=== PATIENT | female | born 1970 | race Caucasian/White ===

== ENCOUNTER 2016-10-24 15:59 | Emergency (ER) | payer BC, OTHER ==
[2016-10-24 19:26] VITALS: BP 123/56
--- NOTE | 2016-10-24 19:43 | UC ---
Throat Pain/Nasal Nikko HPI - HPI Summary HPI Summary: 46 female presents today with 3 grandchildren complaining of having symptoms of a sinus infection for the past week without any improvement. She states she just had one not too long ago, back in July of 2016. Complains of nasal and sinus congestion, ear fullness, pressure behind her eyes and headache. Patient admits to a mild cough due to post nasal drip upon waking up in the morning. Denies sore throat, fever/chills, nausea, vomiting, diarrhea, difficulty breathing and chest pain. She has been experiencing an increased amount of sinus infections and states the right side seems to be worse. She tried taking Sudafed and using Netti pots with minimal relief. - History of Current Complaint Chief Complaint: UCRespiratory Stated Complaint: SINUSES Time Seen by Provider: 10/24/16 19:32 Hx Obtained From: Patient Hx Last Menstrual Period: 08/14/16 ?: No Onset/Duration: Sudden Onset, Lasting Weeks - 1 week Severity: Moderate Pain Intensity: 7 - due to pressure Pain Scale Used: 0-10 Numeric Cough: Nonproductive - only upon waking, thinks it is due from post nasal drip Associated Signs & Symptoms: Positive: Sinus Discomfort, Nasal Discharge. Negative: Dysphagia, Fever, Vomiting - Allergies/Home Medications Allergies/Adverse Reactions: Allergies Allergy/AdvReac Type Severity Reaction Status Date / Time Sulfamethoxazole Allergy Rash Verified 10/24/16 19:26 w/Trimethoprim [From Bactrim] Home Medications: Home Medications Levothyroxine TAB* [Synthroid TAB*] 100 mcg PO DAILY 10/24/16 [History Confirmed 10/24/16] Loratadine [Claritin] 10 mg PO DAILY 10/24/16 [History Confirmed 10/24/16] Montelukast Sodium TAB* [Singulair TAB*] 10 mg PO DAILY 10/24/16 [History Confirmed 10/24/16] PMH/Surg Hx/FS Hx/Imm Hx Previously Healthy: Yes Respiratory History Of: Reports: Asthma - Surgical History Surgical History: Yes Surgery Procedure, Year, and Place: left knee. breast reduction. tubal. appy. T&A - Family History Known Family History: Positive: None Family History: no cardio vascular issues in family lineage - Social History Alcohol Use: Occasionally Substance Use Type: None Smoking Status (MU): Never Smoked Tobacco Review of Systems Constitutional: Negative Skin: Negative Eyes: Negative ENT: Ear Ache - fullness b/l, Nasal Discharge, Other - sinus pressure Respiratory: Cough - upon waking, post nasal drip related, non-productive Cardiovascular: Negative Gastrointestinal: Negative Genitourinary: Negative Motor: Negative Neurovascular: Negative Musculoskeletal: Negative Neurological: Headache Psychological: Negative All Other Systems Reviewed And Are Negative: Yes Physical Exam Triage Information Reviewed: Yes Appearance: Well-Appearing - appears fatigued, sounds congested upon speaking, No Pain Distress, Well-Nourished Vital Signs: Initial Vital Signs Temp 97.1 F 10/24/16 19:22 Pulse 76 10/24/16 19:22 Resp 14 10/24/16 19:22 BP 123/56 10/24/16 19:22 Pulse Ox 100 10/24/16 19:22 Vital Signs Reviewed: Yes Eyes: Positive: Conjunctiva Clear ENT: Positive: Hearing grossly normal, Pharynx normal - post-nasal drip noted, Nasal congestion, Nasal drainage, TMs normal - with serous effusion's bilateral , Other: - tenderness upon percussion of maxillary sinuses, more on the right than the left Dental Exam: Normal Neck: Positive: Supple, Nontender, No Lymphadenopathy Respiratory: Positive: Chest non-tender, Lungs clear, Normal breath sounds, No respiratory distress Cardiovascular: Positive: RRR, No Murmur, Pulses Normal Musculoskeletal Exam: Normal Neurological Exam: Normal Psychological Exam: Normal Skin Exam: Normal Throat Pain/Nasal Course/Dx - Course Course Of Treatment: Patient will be given augmentin and flonase for sinusitis. encouraged to follow up with PCP for further imaging due to increasing amount of sinus infections. - Differential Dx/Diagnosis Differential Diagnosis/HQI/PQRI: Influenza, Laryngitis, Otitis Media, Pharyngitis, Sinusitis, URI Provider Diagnoses: Acute Bacterial Sinusitis Discharge - Discharge Plan Condition: Stable Disposition: HOME Prescriptions: Amoxicillin/Clavulanate TAB* [Augmentin TAB 875*] 875 mg PO BID #20 tab Fluticasone NASAL SPRAY 50MCG* [Flonase NASAL SPRAY 50MCG*] 2 spray BOTH NARES DAILY #1 btl Patient Education Materials: Sinusitis (ED) Referrals: Kayla Hunter MD [Primary Care Provider] - Additional Instructions: Continue using OTC Netti pots/saline rinses, sudafed and Tylenol for pain. Take medications as prescribed until entire dose is finished. If symptoms worsen or do not improve please return to or follow-up with your primary care provider. hot pack on cheeks will also help relieve some pain.
== END 2016-10-24 20:04 | disposition home or self-care (01) ==
LOC: UCCORT 15:59
DX: J01.80 Other acute sinusitis (principal); Z88.2 Allergy status to sulfonamides
CPT/HCPCS: 99212; G0463

== ENCOUNTER 2018-11-11 17:49 | Emergency (ER) | payer OTHER ==
[2018-11-11 18:17] VITALS: BP 119/72
[2018-11-11 18:29] LABS: Influenza A Molecular POSITIVE (Negative)
[2018-11-11] MEDS ORDERED: Albuterol 2.5 MG/3 ML NEB.SOL* (0.083%) INH ONE (18:57)
--- NOTE | 2018-11-11 18:59 | UC ---
UC General HPI - HPI Summary HPI Summary: PER TRIAGE, FEVER/CHILLS, SWEATS, BODYACHES AND COUGH X2 DAYS. TAKING TYLENOL AND IBUPROFEN PRN W/ FEVER RELIEF. ALSO USING ALBUTEROL INHALER AND NEB W/ RELIEF. +HX ASTHMA - History of Current Complaint Chief Complaint: UCRespiratory Stated Complaint: COUGH,FEVER,ACHY,CHILLS Time Seen by Provider: 11/11/18 18:53 Hx Obtained From: Patient Hx Last Menstrual Period: 11/11/18 Timing: Constant Pain Intensity: 9 Associated Signs & Symptoms: Negative: Chest Pain - Allergy/Home Medications Allergies/Adverse Reactions: Allergies Allergy/AdvReac Type Severity Reaction Status Date / Time sulfamethoxazole Allergy Rash Verified 11/11/18 18:11 [From Bactrim] trimethoprim [From Bactrim] Allergy Rash Verified 11/11/18 18:11 Home Medications: Home Medications Albuterol 0.5% CONC NEB.MARGARET* 1 inh BID PRN 11/11/18 [History Confirmed 11/11/18] Albuterol HFA INHALER* [Ventolin HFA Inhaler*] 1 puff Q4HR PRN 11/11/18 [ History Confirmed 11/11/18] Budesonide/Formote 160/4.5(NF) [Symbicort 160/4.5 (NF)] 1 puff DAILY 11/11/18 [ History Confirmed 11/11/18] PMH/Surg Hx/FS Hx/Imm Hx Endocrine History: Thyroid Disease Respiratory History: Asthma - Surgical History Surgical History: Yes Surgery Procedure, Year, and Place: left knee. breast reduction. tubal. appy. T&A - Family History Known Family History: Positive: None Family History: no cardio vascular issues in family lineage - Social History Alcohol Use: Occasionally Substance Use Type: None Smoking Status (MU): Never Smoked Tobacco - Immunization History Most Recent Influenza Vaccination: NOT IN 2017 Review of Systems All Other Systems Reviewed And Are Negative: Yes Constitutional: Positive: Fever, Chills Skin: Positive: Negative Eyes: Positive: Negative ENT: Positive: Negative Respiratory: Positive: Shortness Of Breath, Cough Cardiovascular: Positive: Negative Gastrointestinal: Positive: Negative Genitourinary: Positive: Negative Motor: Positive: Negative Neurovascular: Positive: Negative Musculoskeletal: Positive: Myalgia Neurological: Positive: Headache Psychological: Positive: Negative Physical Exam Triage Information Reviewed: Yes Appearance: Ill-Appearing - BUT NON TOXIC Vital Signs: Initial Vital Signs Temp 98.9 F 11/11/18 18:13 Pulse 94 11/11/18 18:13 Resp 16 11/11/18 18:13 BP 119/72 11/11/18 18:13 Pulse Ox 98 11/11/18 18:13 Vital Signs Reviewed: Yes Eyes: Positive: Conjunctiva Clear ENT: Positive: Pharynx normal, TMs normal. Negative: Nasal drainage Neck: Positive: Supple, Nontender, No Lymphadenopathy Respiratory: Positive: No respiratory distress, Decreased breath sounds, Wheezing - FEW SCATTERED, Other: - NPC Cardiovascular: Positive: RRR, No Murmur Abdomen Description: Positive: Nontender, No Organomegaly, Soft Bowel Sounds: Positive: Present Musculoskeletal: Positive: ROM Intact Neurological: Positive: Alert Psychological: Positive: Age Appropriate Behavior Skin Exam: Normal Diagnostics - Laboratory Diagnostic Studies Completed/Ordered: INFLUENZA A + Course/Dx - Diagnoses Provider Diagnosis: Influenza A Discharge - Sign-Out/Discharge Documenting (check all that apply): Patient Departure All imaging exams completed and their final reports reviewed: No Studies - Discharge Plan Condition: Stable Disposition: HOME Prescriptions: Oseltamivir CAP* [Tamiflu CAP*] 75 mg PO BID 5 Days #10 cap predniSONE [Prednisone 20 MG TAB] 40 mg PO DAILY 5 Days #10 tablet Patient Education Materials: Influenza (DC) Forms: *Work Release Referrals: Kayla Hunter MD [Primary Care Provider] - 5 Days Additional Instructions: USE RESCUE INHALER 2 PUFFS EVERY 6 HOURS - Billing Disposition and Condition Condition: STABLE Disposition: Home
== END 2018-11-11 19:18 | disposition home or self-care (01) ==
LOC: UCCORT 17:49
DX: J10.1 Influenza due to other identified influenza virus with other respiratory manifestations (principal); J45.909 Unspecified asthma, uncomplicated; Z88.2 Allergy status to sulfonamides; Z79.899 Other long term (current) drug therapy
CPT/HCPCS: 99212; G0463

== ENCOUNTER 2019-08-01 13:44 | Emergency (ER) | payer OTHER ==
[2019-08-01 15:43] VITALS: BP 115/36
--- NOTE | 2019-08-01 16:27 | UC ---
Throat Pain/Nasal Nikko HPI - HPI Summary HPI Summary: Patient is a 49yo female presenting with nasal congestion, sore throat, sinus pressure and tenderness, and headache x5 days. Patient states she gets sinusitis every year. Amos ear pain. Denies cough, SOB, and wheezing. Denies n/ v/d. Denies fever and chills. Patient also notes pruritic rash on left lower abdomen that has been there for several weeks. States she also has had this in the past. Notes history of asthma and eczema. - History of Current Complaint Chief Complaint: UCGeneralIllness Stated Complaint: SINUS COMPLAINT Time Seen by Provider: 08/01/19 15:58 Hx Obtained From: Patient Hx Last Menstrual Period: 11/11/18 Onset/Duration: Gradual Onset, Lasting Days Severity: Moderate Pain Intensity: 4 Pain Scale Used: 0-10 Numeric - Allergies/Home Medications Allergies/Adverse Reactions: Allergies Allergy/AdvReac Type Severity Reaction Status Date / Time sulfamethoxazole Allergy Rash Verified 08/01/19 15:44 [From Bactrim] trimethoprim [From Bactrim] Allergy Rash Verified 08/01/19 15:44 Home Medications: Home Medications Magnesium Oxide [Magnesium] 250 mg PO DAILY 08/01/19 [History Confirmed 08/01/19 ] Potassium Gluconate [Potassium] 600 mg PO DAILY 08/01/19 [History Confirmed 11/18] Zinc 50 mg PO DAILY 08/01/19 [History Confirmed 08/01/19] PMH/Surg Hx/FS Hx/Imm Hx Respiratory History: Asthma - Surgical History Surgical History: Yes Surgery Procedure, Year, and Place: left knee. breast reduction. tubal. appy. T&A - Family History Known Family History: Positive: None Family History: no cardio vascular issues in family lineage - Social History Alcohol Use: Occasionally Substance Use Type: None Smoking Status (MU): Never Smoked Tobacco - Immunization History Most Recent Influenza Vaccination: NOT IN 2017 Review of Systems All Other Systems Reviewed And Are Negative: Yes Constitutional: Positive: Negative. Negative: Fever, Chills, Fatigue Eyes: Positive: Negative ENT: Positive: Sore Throat, Nasal Discharge, Sinus Congestion, Sinus Pain/ Tenderness. Negative: Ear Ache Respiratory: Positive: Negative. Negative: Shortness Of Breath, Cough Cardiovascular: Positive: Negative. Negative: Palpitations, Chest Pain Gastrointestinal: Positive: Negative. Negative: Vomiting, Nausea Neurological: Positive: Headache Physical Exam Triage Information Reviewed: Yes Appearance: Well-Appearing, No Pain Distress, Well-Nourished Vital Signs: Initial Vital Signs Temp 98.3 F 08/01/19 15:38 Pulse 79 08/01/19 15:38 Resp 18 08/01/19 15:38 BP 115/36 08/01/19 15:38 Pulse Ox 96 08/01/19 15:38 Eyes: Positive: Conjunctiva Clear ENT: Positive: Hearing grossly normal, Pharyngeal erythema, Nasal congestion, TMs normal, Sinus tenderness - maxillary, Uvula midline. Negative: Nasal drainage, Tonsillar swelling, Tonsillar exudate Neck exam: Normal Neck: Positive: Supple, Nontender, No Lymphadenopathy Respiratory Exam: Normal Respiratory: Positive: Lungs clear, Normal breath sounds, No respiratory distress Cardiovascular Exam: Normal Cardiovascular: Positive: RRR Neurological: Positive: Alert Psychological: Positive: Age Appropriate Behavior Skin: Positive: Other - area of eczematous rash extending from L inguinal region to ASIS Throat Pain/Nasal Course/Dx - Course Course Of Treatment: Treating with Augmentin for sinusitis and triamcinolone cream for pruritic rash. Instructed patient to follow up with PCP if either symptoms worsen or persist. Patient voiced understanding and agreed with the treatment plan. - Differential Dx/Diagnosis Provider Diagnosis: Pruritic erythematous rash, Sinusitis Discharge ED - Sign-Out/Discharge Documenting (check all that apply): Patient Departure All imaging exams completed and their final reports reviewed: No Studies - Discharge Plan Condition: Stable Disposition: HOME Prescriptions: Amoxicillin/Clavulanate TAB* [Augmentin TAB 875*] 875 mg PO BID #10 tab Triamcinolone 0.025% CM(NF) [Kenalog Cream 0.025%*] 1 applic TOPICAL DAILY 14 Days #1 tube Patient Education Materials: Sinusitis (ED), Itchy Skin (ED) Referrals: Kayla Hunter MD [Primary Care Provider] - If Needed Additional Instructions: As discussed, take Augmentin for the treatment of your sinusitis. You may also take Mucinex and use Flonase as directed to help relieve symptoms. You may take ibuprofen as directed for pain relief. Get plenty of rest and fluids. Use the steroid cream as prescribed for the treatment of your rash. Follow up with your primary care doctor if any of your symptoms worsen or do not resolve within 7 days. - Billing Disposition and Condition Condition: STABLE Disposition: Home
== END 2019-08-01 16:41 | disposition home or self-care (01) ==
LOC: UCCORT 13:44
DX: J32.9 Chronic sinusitis, unspecified (principal); R21 Rash and other nonspecific skin eruption; Z88.2 Allergy status to sulfonamides
CPT/HCPCS: 99212; G0463